=== PATIENT | female | born 1995 | race Caucasian/White ===

== ENCOUNTER 2018-09-15 07:42 | Emergency (ER) | payer MEDICAID ==
[2018-09-15 08:03] VITALS: BP 111/65
[2018-09-15] MEDS ORDERED: ATIVAN PO ONE (10:06)
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
[2018-09-15] MEDS ORDERED: ZOFRAN ODT PO ONE (10:46)
== END 2018-09-15 11:06 | disposition home or self-care (01) ==
LOC: ED 07:42
DX: F41.9 Anxiety disorder, unspecified (principal)
CPT/HCPCS: 99282; Q0162

== ENCOUNTER 2019-10-10 05:53 | Emergency (ER) | payer MEDICAID ==
[2019-10-10 07:23] LABS: Hematocrit 41.2 % (30.3-42.9); Hemoglobin 13.7 gm/dl (10.1-14.3); Mean Corpuscular HGB Conc 33 % (30-34); Mean Corpuscular Volume 87 fl (79-97); Platelet Count 263 K/mm3 (140-440); Red Blood Count 4.72 M/mm3 (3.65-5.03); Red Cell Distribution Width 13.1 % (13.2-15.2)
[2019-10-10] MEDS ORDERED: ONDANSETRON 4 MG/2 ML INJ ONE (07:39)
[2019-10-10] MEDS ORDERED: SODIUM CHLORIDE 0.9% 1000 ML 1,000 ML ONE (07:39)
[2019-10-10 07:43] LABS: Alanine Aminotransferase 10 units/L (7-56); Albumin 4.9 g/dL (3.9-5); BUN/Creatinine Ratio 13; Blood Urea Nitrogen 9 mg/dL (7-17); Calcium 9.4 mg/dL (8.4-10.2); Hemolysis Index 2
[2019-10-10] MEDS ORDERED: ONDANSETRON 4 MG/2 ML INJ IV ONE (07:44)
[2019-10-10] MEDS ORDERED: SODIUM CHLORIDE 0.9% 1000 ML 1,000 ML IV ONE (07:44)
[2019-10-10] MEDS ORDERED: FAMOTIDINE 20 MG/2 ML INJ IV ONE (07:44)
[2019-10-10] MEDS ORDERED: LORazepam 2 MG/ML VIAL IV ONE (07:44)
[2019-10-10] MEDS ORDERED: LORazepam 2 MG/ML VIAL ONE (07:46)
[2019-10-10 08:30] LABS: HCG Qualitative,Urine Negative (Negative)
[2019-10-10 08:34] LABS: Amorphous Crystals,Urine 1+; Bacteria,Urine 2+ /HPF (Negative); Bilirubin,Urine NEG (Negative); Blood,Urine MOD (Negative); Color,Urine Yellow (Yellow); Mucus,Urine 3+ /HPF
--- NOTE | 2019-10-10 08:59 | Emergency Department Report ---
ED N/V/D HPI - General Chief complaint: Abdominal Pain Stated complaint: ANXIETY Time Seen by Provider: 10/10/19 07:40 Source: patient Mode of arrival: Ambulatory Limitations: No Limitations - History of Present Illness Initial comments: This is a 24-year-old female states that she suffers from anxiety she has been feeling very anxious for the last 3 days. At around 1 AM this morning she started having nausea and vomiting. She reports a history of having stomach ulcers that has not been treated. She is complaining of burning to the epigastric region of her stomach since she started vomiting. She described the vomitus as watery fluid not containing any blood not green in color. patient states that she has not been able to get counselor for her anxiety due to insurance issues. She denies any suicidal ideation. She denies fever she denies cough chest pain and shortness of breath. MD complaint: nausea, vomiting -: Sudden Description of Vomiting: watery Associated Abdominal Pain: Yes (epigastric) Location: epigastric Severity: mild Pain Scale: 4 Quality: other (burning) Improves with: none Worsens with: vomiting Associated Symptoms: nausea/vomiting, other (anxiety). denies: myalgias, chest pain, cough, diaphoresis, fever/chills, headaches, loss of appetite, dysuria, shortness of breath, syncope, weakness - Related Data Previous Rx's Medication Instructions Recorded Last Taken Type LORazepam [Ativan] 1 mg PO QHS #15 tablet 09/15/18 Unknown Rx Ondansetron [Zofran Odt] 4 mg PO Q8H #20 tab.rapdis 09/15/18 Unknown Rx Ondansetron [Zofran Odt] 4 mg PO Q8HR #20 tab.rapdis 09/27/19 Unknown Rx hydrOXYzine PAMOATE [Vistaril] 50 mg PO Q6HR PRN #30 capsule 09/27/19 Unknown Rx Famotidine [Pepcid] 20 mg PO BID #30 tablet 10/10/19 Unknown Rx Hydroxyzine HCl [hydrOXYzine] 50 mg PO Q6H PRN #30 tablet 10/10/19 Unknown Rx Allergies Allergy/AdvReac Type Severity Reaction Status Date / Time No Known Allergies Allergy Verified 09/27/19 22:04 ED Review of Systems ROS: Stated complaint: ANXIETY Other details as noted in HPI Comment: All other systems reviewed and negative Constitutional: no symptoms reported Eyes: denies: eye pain ENT: denies: ear pain, throat pain, congestion Respiratory: denies: cough, shortness of breath, SOB with exertion, wheezing Cardiovascular: denies: chest pain, palpitations Endocrine: no symptoms reported Gastrointestinal: abdominal pain, nausea, vomiting. denies: diarrhea, constipation, melena, hematochezia Genitourinary: denies: urgency, dysuria, hematuria Musculoskeletal: denies: back pain, joint swelling Skin: denies: rash, lesions, change in hair/nails Neurological: denies: headache, confusion Psychiatric: anxiety. denies: visual hallucinations, homicidal thoughts, suicidal thoughts Hematological/Lymphatic: denies: easy bruising, swollen glands ED Past Medical Hx - Past Medical History Previous Medical History?: Yes Hx Psychiatric Treatment: Yes (Anxiety) Additional medical history: Hx anxiety - Surgical History Past Surgical History?: No - Social History Smoking Status: Never Smoker Substance Use Type: None - Medications Home Medications: Home Medications Medication Instructions Recorded Confirmed Last Taken Type LORazepam [Ativan] 1 mg PO QHS #15 tablet 09/15/18 Unknown Rx Ondansetron [Zofran Odt] 4 mg PO Q8H #20 tab.rapdis 09/15/18 Unknown Rx Ondansetron [Zofran Odt] 4 mg PO Q8HR #20 tab.rapdis 09/27/19 Unknown Rx hydrOXYzine PAMOATE [Vistaril] 50 mg PO Q6HR PRN #30 capsule 09/27/19 Unknown Rx Famotidine [Pepcid] 20 mg PO BID #30 tablet 10/10/19 Unknown Rx Hydroxyzine HCl [hydrOXYzine] 50 mg PO Q6H PRN #30 tablet 10/10/19 Unknown Rx ED Physical Exam - General Limitations: No Limitations General appearance: alert, in no apparent distress - Head Head exam: Present: atraumatic - Eye Eye exam: Present: normal appearance - ENT ENT exam: Present: normal exam, mucous membranes moist - Neck Neck exam: Present: normal inspection, full ROM - Respiratory Respiratory exam: Present: normal lung sounds bilaterally. Absent: respiratory distress, chest wall tenderness - Cardiovascular Cardiovascular Exam: Present: regular rate, normal rhythm, normal heart sounds - GI/Abdominal GI/Abdominal exam: Present: soft, normal bowel sounds. Absent: distended, tenderness, guarding - Rectal Rectal exam: Present: deferred - External exam: Present: normal external exam - Extremities Exam Extremities exam: Present: normal inspection - Back Exam Back exam: Present: normal inspection. Absent: CVA tenderness (R), CVA tenderness (L) - Neurological Exam Neurological exam: Present: alert, oriented X3 - Psychiatric Psychiatric exam: Present: normal affect - Skin Skin exam: Present: warm, dry, intact ED Course Vital Signs 10/10/19 05:59 Temperature 98.2 F Pulse Rate 112 H Respiratory 18 Rate Blood Pressure 118/85 O2 Sat by Pulse 99 Oximetry - Reevaluation(s) Reevaluation #1: 10/10/19 09:50 Patient resting comfortably stating that she is doing much better she has not vomiting has not vomited since being placed in her room. She is calm relaxed stating she is ready to go home I discussed follow-up with [facility] with patient or with a behavioral health provider through her health insurance. She verbalizes understanding I discussed the results of her lab work. Patient is currently on her. That explains the blood in the urine. ED Medical Decision Making - Lab Data Result diagrams: 10/10/19 06:52 10/10/19 06:52 - Medical Decision Making Labs reviewed patient does have a elevated WBC on her CBC. Her abdominal pain is now resolved. She has no fever no chills. Her urine has blood but that she is currently menstruating . Patient is to follow-up with her primary care doctor and to [facility] or to [facility] that is in her network - Differential Diagnosis gastroenteritis Critical care attestation.: If time is entered above; I have spent that time in minutes in the direct care of this critically ill patient, excluding procedure time. ED Disposition Clinical Impression: Anxiety, Acute anxiety, Vomiting alone Nausea & vomiting Qualifiers: Vomiting type: unspecified Vomiting Intractability: non-intractable Qualified Code(s): R11.2 - Nausea with vomiting, unspecified Disposition: DC-01 TO HOME OR SELFCARE Is pt being admited?: No Does the pt Need Aspirin: No Condition: Stable Instructions: Abdominal Pain (ED), Generalized Anxiety Disorder (ED), Acute Nausea and Vomiting (ED) Additional Instructions: Please follow-up with your insurance company to obtain follow-up for behavioral health or you may follow-up with [facility]. Seek immediate attention for any worsening symptoms SUCH as worsening abdominal pain vomiting blood or if you have any suicidal thoughts please follow-up immediately by returning to the emergency room or calling the crisis center hotline Prescriptions: Hydroxyzine HCl [hydrOXYzine] 50 mg PO Q6H PRN #30 tablet PRN Reason: Anxiety Famotidine [Pepcid] 20 mg PO BID #30 tablet Referrals: PRIMARY CARE, [Primary Care Provider] - 3-[address] [facility] [Outside] - 3-5 Days Time of Disposition: 09:49
[2019-10-10 09:55] LABS: Basophils % (Manual) 0 % (0.0-1.8); Eosinophils % (Manual) 0 % (0.0-4.3); RBC Morphology Normal; Total Cells Counted 100
[2019-10-10 09:56] LABS: Platelet Estimate Consistent w Auto
[2019-10-10 10:02] VITALS: BP 114/72
== END 2019-10-10 10:02 | disposition home or self-care (01) ==
LOC: ED 05:53
DX: F41.9 Anxiety disorder, unspecified (principal); R11.2 Nausea with vomiting, unspecified; R10.13 Epigastric pain; Z79.899 Other long term (current) drug therapy
CPT/HCPCS: 36415; 80053; 81001; 81025; 83690; 85007; 85025; 96361; 96374; 96375; 99283; J2060; J2405; J7030

== ENCOUNTER 2020-04-19 22:31 | Outpatient (CLI) | payer MEDICAID ==
[2020-04-19 23:19] VITALS: BP 108/63
== END 2020-04-19 23:58 | disposition home or self-care (01) ==
LOC: TRG 22:31 → APU 22:33 → TRG 23:58
PROVIDERS: ATTEND Obstetrics & Gynecology
DX: Z34.92 Encounter for supervision of normal pregnancy, unspecified, second trimester (principal); Z3A.27 27 weeks gestation of pregnancy
CPT/HCPCS: 59025